=== PATIENT | male | born 1985 | race Caucasian/White ===

== ENCOUNTER 2016-06-21 08:32 | Emergency (ER) | payer MEDICAID ==
[2016-06-21 08:39] VITALS: BP 125/77; PULSE 80; TEMP 97; O2SAT 99; BMI 29.9
--- NOTE | 2016-06-21 10:15 | ED PDOC ---
HPI: General Adult Time Seen by Provider: 06/21/16 09:08 Chief Complaint (Nursing): Trauma History Per: Patient (Left rib pain since Sat after wrestling with brother. No SOB. Pain worse on breathing and movement.) Onset/Duration Of Symptoms: Days (2) Current Symptoms Are (Timing): Still Present Severity: Mild Pain Scale Rating Of: 2 Past Medical History Vital Signs: Last Vital Signs Temp 97 F L 06/21/16 08:38 Pulse 80 06/21/16 08:38 Resp BP 125/77 06/21/16 08:38 Pulse Ox 99 06/21/16 10:15 - Medical History PMH: No Chronic Diseases - Family History Family History: States: Unknown Family Hx - Home Medications Home Medications: Ambulatory Orders Medication Instructions Recorded oxyCODONE/Acetaminophen [Percocet 1 ea PO Q6 PRN #10 tab 02/13/14 5/325 mg Tab] Amoxicillin/Potassium Clav 1 each PO Q8 #30 tablet 03/29/15 [Augmentin 500-125 Tablet] Dexamethasone/Tobramycin [Tobradex 1 drop OS Q4 #1 bottle 03/29/15 0.1%-0.3% 2.5 Ml] Oxycodone HCl/Acetaminophen 1 each PO Q6 #14 tablet 03/29/15 [Percocet 5-325 mg Tablet] Pseudoephedrine [Pseudoephedrine 60 mg PO Q8 #30 tab 03/29/15 HCl] traMADol [Ultram] 50 mg PO Q8 #10 tab 06/21/16 - Allergies Allergies/Adverse Reactions: Allergies Allergy/AdvReac Type Severity Reaction Status Date / Time No Known Allergies Allergy Verified 02/13/14 14:48 Review of Systems Respiratory: Negative for: Shortness of Breath Musculoskeletal: Positive for: Other (Left rib pain) Physical Exam - Physical Exam Appears: Positive for: Non-toxic, No Acute Distress Skin: Positive for: Normal Color, Warm, DRY Cardiovascular/Chest: Positive for: Regular Rate, Rhythm. Negative for: Chest Non Tender (Tenderness left lateral ribs) Respiratory: Positive for: CNT, Normal Breath Sounds Gastrointestinal/Abdominal: Positive for: Bowel Sounds, Soft. Negative for: Tenderness - ECG O2 Sat by Pulse Oximetry: 99 Disposition - Clinical Impression Clinical Impression: Rib contusion - Patient ED Disposition Is Patient to be Admitted: No Counseled Patient/Family Regarding: Studies Performed, Diagnosis, Need For Followup, Rx Given - Disposition Referrals: [facility] [Outside] Disposition: Routine/Home Disposition Time: 12:12 Condition: FAIR Prescriptions: traMADol [Ultram] 50 mg PO Q8 #10 tab Instructions: Rib Contusion (ED) Forms: [facility] (Qatari)
--- NOTE | 2016-06-21 13:54 | RAD ---
PROCEDURE: Radiographs of the Chest and Left Ribs. HISTORY: trauma COMPARISON: None available. TECHNIQUE: Frontal radiograph of the chest and multiple oblique radiographs of the left ribs were obtained. FINDINGS: LEFT RIBS: No fracture or focal lesion visualized. LUNGS: Clear. PLEURA: No pneumothorax or pleural fluid. CARDIOVASCULAR: Normal sized heart. No pulmonary vascular congestion. OTHER FINDINGS: None. IMPRESSION: Unremarkable radiographs of the chest and left ribs. No left rib fracture.
== END 2016-06-21 12:36 | disposition home or self-care (01) ==
LOC: H.ER 08:32
DX: S20.219A Contusion of unspecified front wall of thorax, initial encounter (principal); X50.9XXA Other and unspecified overexertion or strenuous movements or postures, initial encounter; Y93.72 Activity, wrestling

== ENCOUNTER 2016-09-06 22:10 | Emergency (ER) | payer MEDICAID, OTHER ==
[2016-09-06 22:10] VITALS: BMI 29.9
[2016-09-06 22:19] VITALS: BP 132/76; PULSE 84; RESP 18; TEMP 97.6; O2SAT 99
--- NOTE | 2016-09-06 22:48 | ED PDOC ---
Lower Extremity Pain/Injury Time Seen by Provider: 09/06/16 22:26 Chief Complaint (Nursing): Lower Extremity Problem/Injury Chief Complaint (Provider): right foot History Per: Patient History/Exam Limitations: no limitations - Ankle/Foot Description Of Injury: Other (right foot ran over by a forklift machine at work earlier today. now with pain to foot mad owrse with walking. ) - Risk Factors DVT Risk Factors: Pos: None Past Medical History Reviewed: Historical Data, Nursing Documentation, Vital Signs Vital Signs: Last Vital Signs Temp 97.6 F 09/06/16 22:15 Pulse 84 09/06/16 22:15 Resp 18 09/06/16 22:15 BP 132/76 09/06/16 22:15 Pulse Ox 99 09/06/16 22:15 - Medical History PMH: No Chronic Diseases - Family History Family History: States: Unknown Family Hx - Home Medications Home Medications: Ambulatory Orders Medication Instructions Recorded oxyCODONE/Acetaminophen [Percocet 1 ea PO Q6 PRN #10 tab 02/13/14 5/325 mg Tab] Amoxicillin/Potassium Clav 1 each PO Q8 #30 tablet 03/29/15 [Augmentin 500-125 Tablet] Dexamethasone/Tobramycin [Tobradex 1 drop OS Q4 #1 bottle 03/29/15 0.1%-0.3% 2.5 Ml] Oxycodone HCl/Acetaminophen 1 each PO Q6 #14 tablet 03/29/15 [Percocet 5-325 mg Tablet] Pseudoephedrine [Pseudoephedrine 60 mg PO Q8 #30 tab 03/29/15 HCl] traMADol [Ultram] 50 mg PO Q8 #10 tab 06/21/16 Ibuprofen [Motrin] 400 mg PO Q6 #30 tab 09/06/16 - Allergies Allergies/Adverse Reactions: Allergies Allergy/AdvReac Type Severity Reaction Status Date / Time No Known Allergies Allergy Verified 02/13/14 14:48 Review of Systems ROS Statement: Except As Marked, All Systems Reviewed And Found Negative Musculoskeletal: Positive for: Foot Pain Physical Exam - Reviewed Nursing Documentation Reviewed: Yes Vital Signs Reviewed: Yes - Physical Exam Appears: Positive for: Well, Non-toxic, No Acute Distress Skin: Positive for: Normal Color, Warm, DRY Cardiovascular/Chest: Positive for: Regular Rate, Rhythm Respiratory: Positive for: CNT, Normal Breath Sounds Extremity: Negative for: Other (foot: right swelling to orsum of foot with pain and pain to plantar aspect of foot mild reddness and swelling FROM of foot. ) Neurologic/Psych: Positive for: Alert, Oriented - ECG O2 Sat by Pulse Oximetry: 99 - Radiology X-Ray: Interpreted by Me (? fx noted) Medical Decision Making Medical Decision Making: podiatry consulted Pt was splinted an given cruthes and advised to have podiatry consult next week,. Disposition - Clinical Impression Clinical Impression: Foot injury - Patient ED Disposition Is Patient to be Admitted: No Counseled Patient/Family Regarding: Studies Performed, Diagnosis, Need For Followup, Rx Given - Disposition Referrals: Podiatry Clinic [Outside] Disposition: Routine/Home Disposition Time: 23:44 Condition: GOOD Prescriptions: Ibuprofen [Motrin] 400 mg PO Q6 #30 tab Instructions: Swollen Joint (ED) Forms: [facility] ED School/Work Excuse
--- NOTE | 2016-09-06 23:49 | CP.PCM.CON ---
History of Present Illness - History of Present Illness History of Present Illness: Patient is a 31 y.o male who was seen in ED for right foot pain secondary to trauma. Patient was at work when a tugger cart rolled over his right foot at 6pm. He was wearing [id number] boots at the time of the injury. He reports 5/10 pain and describes the pain as a sharp pain that stays localized at the plantar aspect of metatarsal shaft 2, 3, and 4. He admits to being able to walk but is painful. He presents in the ED with slippers and socks and is accompanied by his girlfriend. He denies n/v/sob/cp/chills or f. PMH: none PSH: none Allergies: NKDA Medication: none Review of Systems - Constitutional Constitutional: As Per HPI - Integumentary Integumentary: As Per HPI Past Patient History - Past Social History Smoking Status: Light Smoker < 10 Cigarettes Daily - PSYCHIATRIC Hx Substance Use: Yes (MARIJUANA) - SURGICAL HISTORY Hx Surgeries: Yes (right hand) - ANESTHESIA Hx Anesthesia: Yes Meds Home Medications: Home Medication List Medication Instructions Recorded Confirmed Type Ibuprofen [Motrin] 400 mg PO Q6 #30 tab 09/06/16 Rx Allergies/Adverse Reactions: Allergies Allergy/AdvReac Type Severity Reaction Status Date / Time No Known Allergies Allergy Verified 02/13/14 14:48 Physical Exam - Constitutional Appears: Well, Non-toxic, No Acute Distress - Extremities Exam Additional comments: Vasc: DP and PT 2/4 bilaterally, MITER CUTTER <3 seconds, digital hair present bilaterally, temperature gradient WNL, no edema noted Ortho: MM is 5/5 in all four compartments, moderate pain with palpation of metatarsals 2,3, and 4 shaft plantarly. Pain at the plantar midfoot noted. no pain with ROM 1-5 MPJ right foot Neuro: gross sensation intact bilaterally Derm: no open lesions noted, no erythema or ecchymosis noted, skin color appear normal - Neurological Exam Neurological exam: Alert, Oriented x3 - Skin Skin Exam: Intact, Normal Color Results - Vital Signs Recent Vital Signs: Last Vital Signs Temp 97.6 F 09/06/16 22:15 Pulse 84 09/06/16 22:15 Resp 18 09/06/16 22:15 BP 132/76 09/06/16 22:15 Pulse Ox 99 09/06/16 22:53 Assessment & Plan - Assessment and Plan (Free Text) Assessment: 31 y.o male with right foot pain secondary to trauma with possible lisfranc injury Plan: Patient examined and evaluated at bedside. Patient chart and labs reviewed. Plan discussed in detail with attending Dr. Teresa. X-rays ordered and reviewed- no fracture noted; diastasis of 1st and 2nd metatarsal bases noted Posterior splint was applied to right leg. Patient tolerated application well. Instructed to NWB in right posterior splint with crutches for next 2 days Recommend Ibuprofen for pain Ice and elevate right leg Will f/u in podiatry clinic within 1 week to r/o lisfranc injury and access patient Thank you for the consult
--- NOTE | 2016-09-07 12:33 | RAD ---
PROCEDURE: Right Foot Radiographs. HISTORY: Foot Pain. No history of recent/ related trauma provided COMPARISON: None. FINDINGS: BONES: Normal. No fracture. JOINTS: Minor hallux valgus deformity SOFT TISSUES: Normal. OTHER FINDINGS: None. IMPRESSION: No acute findings related to/accounting for the clinical presentation. Concordant results with the preliminary interpretation rendered by the emergency department physician procedure.
== END 2016-09-06 23:22 | disposition home or self-care (01) ==
LOC: H.ER 22:10
DX: S93.334A Other dislocation of right foot, initial encounter (principal); W24.0XXA Contact with lifting devices, not elsewhere classified, initial encounter; Y93.9 Activity, unspecified

== ENCOUNTER 2017-04-24 10:42 | Emergency (ER) | payer OTHER ==
[2017-04-24 10:42] VITALS: BMI 29.9
[2017-04-24 10:58] VITALS: RESP 18; TEMP 98.2; O2SAT 100
[2017-04-24] MEDS ORDERED: Tdap Vaccine 0.5 ml Vial (10-64 yrs) IM ONE (12:08)
[2017-04-24] MEDS ORDERED: Tetanus/Diphtheria Toxoids 0.5 ml Syringe IM ONE (12:12)
--- NOTE | 2017-04-24 13:02 | ED PDOC ---
HPI: General Adult Time Seen by Provider: 04/24/17 11:22 Chief Complaint (Nursing): Medical Clearance History Per: Patient Additional Complaint(s): Pt. states he was arrested early this morning and during the arrest he injured his head. States he struck his head but is uncertain as to what he hit his head on. Reports no LOC. Currently c/o pain to the back of the head. Denies previous TBI, nausea, vomiting, neck pain, other injury, limb pain, chest pain, abdominal pain. Past Medical History Vital Signs: Last Vital Signs Temp 98.2 F 04/24/17 10:53 Pulse 98 H 04/24/17 10:53 Resp 18 04/24/17 10:53 BP 128/77 04/24/17 10:53 Pulse Ox 100 04/24/17 13:04 - Family History Family History: States: Unknown Family Hx - Home Medications Home Medications: Ambulatory Orders Medication Instructions Recorded oxyCODONE/Acetaminophen [Percocet 1 ea PO Q6 PRN #10 tab 02/13/14 5/325 mg Tab] Amoxicillin/Potassium Clav 1 each PO Q8 #30 tablet 03/29/15 [Augmentin 500-125 Tablet] Dexamethasone/Tobramycin [Tobradex 1 drop OS Q4 #1 bottle 03/29/15 0.1%-0.3% 2.5 Ml] Oxycodone HCl/Acetaminophen 1 each PO Q6 #14 tablet 03/29/15 [Percocet 5-325 mg Tablet] Pseudoephedrine [Pseudoephedrine 60 mg PO Q8 #30 tab 03/29/15 HCl] traMADol [Ultram] 50 mg PO Q8 #10 tab 06/21/16 Ibuprofen [Motrin] 400 mg PO Q6 #30 tab 09/06/16 - Allergies Allergies/Adverse Reactions: Allergies Allergy/AdvReac Type Severity Reaction Status Date / Time No Known Allergies Allergy Verified 02/13/14 14:48 Review of Systems ROS Statement: Except As Marked, All Systems Reviewed And Found Negative Neurological: Positive for: Headache Physical Exam - Physical Exam Appears: Positive for: Well, Non-toxic, No Acute Distress Head Exam: Negative for: ATRAUMATIC (superficial abrasion with swelling on occipital scalp), NORMAL INSPECTION, NORMOCEPHALIC Skin: Positive for: Normal Color, Warm, DRY Eye Exam: Positive for: Normal appearance, EOMI, PERRL. Negative for: Periorbital swelling, Periorbital tenderness ENT: Positive for: Normal ENT Inspection, TM Is/Are (no hemotympanum b/l) Neck: Positive for: Normal, Painless ROM Cardiovascular/Chest: Positive for: Regular Rate, Rhythm, Chest Non Tender Respiratory: Positive for: CNT, Normal Breath Sounds Gastrointestinal/Abdominal: Positive for: Normal Exam, Soft. Negative for: Tenderness Back: Positive for: Normal Inspection. Negative for: L CVA Tenderness, R CVA Tenderness, Vertebral Tenderness (no cervical spine tenderness) Extremity: Positive for: Normal ROM Neurologic/Psych: Positive for: Alert, Oriented. Negative for: Aphasia, Facial Droop - ECG O2 Sat by Pulse Oximetry: 100 - Progress ED Course And Treament: Tetanus prophylaxis administered. CT head w/o contrast ordered. Disposition - Clinical Impression Clinical Impression: Head injury - Patient ED Disposition Is Patient to be Admitted: No - Disposition Referrals: [facility] [Outside] Disposition: Discharged/Transfer to Law Enforcement Disposition Time: 13:32 Condition: STABLE Additional Instructions: Patient is medically and psychiatrically cleared for incarceration. Instructions: Minor Head Injury (DC) Print Language: YORUBA
--- NOTE | 2017-04-24 13:34 | CT ---
PROCEDURE: CT HEAD WITHOUT CONTRAST. HISTORY: trauma COMPARISON: None available. TECHNIQUE: Axial computed tomography images were obtained through the head/brain without intravenous contrast. . Note the examination is limited by motion artifact. Radiation dose: Total exam DLP = 878.76 mGy-cm. This CT exam was performed using one or more of the following dose reduction techniques: Automated exposure control, adjustment of the mA and/or kV according to patient size, and/or use of iterative reconstruction technique. FINDINGS: HEMORRHAGE: No intracranial hemorrhage. BRAIN: No mass effect or edema. No atrophy or chronic microvascular ischemic changes. VENTRICLES: No obstructive hydrocephalus. Incidental note is made of cavum septum pellucidum and vergae. CALVARIUM: No acute calvarial fractures. The PARANASAL SINUSES: Minimal mucosal thickening both maxillary antra left greater than right. There is also mild mucosal thickening in the ethmoid air complex extending superiorly into the frontal sinus. MASTOID AIR CELLS: Unremarkable as visualized. No inflammatory changes. OTHER FINDINGS: None. IMPRESSION: Limited motion degraded study. No acute intracranial hemorrhage. Right parasagittal and mid posterior superior parietal scalp contusion/soft tissue swelling which extends inferiorly into the occipital region
[2017-04-24 14:53] VITALS: BP 122/74; PULSE 88
== END 2017-04-24 14:27 ==
LOC: H.ER 10:42
DX: S00.03XA Contusion of scalp, initial encounter; Y35.813A Legal intervention involving manhandling, suspect injured, initial encounter; Y92.89 Other specified places as the place of occurrence of the external cause

== ENCOUNTER 2017-05-08 21:06 | Emergency (ER) | payer SELFPAY ==
[2017-05-08 21:06] VITALS: BMI 29.9
[2017-05-08 21:21] VITALS: BP 144/83; PULSE 89; RESP 18; TEMP 97.8; O2SAT 99
--- NOTE | 2017-05-08 21:36 | ED PDOC ---
Upper Extremity Pain/Injury Time Seen by Provider: 05/08/17 21:33 Chief Complaint (Nursing): Finger,Hand,&Wrist History Per: Patient History/Exam Limitations: no limitations Current Symptoms Are (Timing): Still Present Additional Complaint(s): 31 y/o male, who presents to the ED complaining of swelling and pain on right index finger since 5 days ago. Patient reports having a habit of biting his nails and developed this swelling. He notes having Tetanus shot updates a couple weeks ago when he came to the ED to get evaluated for headache. Patient denies fever, chills, nausea, or other complaints. Past Medical History Reviewed: Historical Data, Nursing Documentation, Vital Signs Vital Signs: Last Vital Signs Temp 97.8 F 05/08/17 21: Pulse 89 05/08/17 21:17 Resp 18 05/08/17 21:17 BP 144/83 05/08/17 21:17 Pulse Ox 99 05/08/17 21:17 - Family History Family History: States: Unknown Family Hx - Home Medications Home Medications: Ambulatory Orders Medication Instructions Recorded oxyCODONE/Acetaminophen [Percocet 1 ea PO Q6 PRN #10 tab 02/13/14 5/325 mg Tab] Amoxicillin/Potassium Clav 1 each PO Q8 #30 tablet 03/29/15 [Augmentin 500-125 Tablet] Dexamethasone/Tobramycin [Tobradex 1 drop OS Q4 #1 bottle 03/29/15 0.1%-0.3% 2.5 Ml] Oxycodone HCl/Acetaminophen 1 each PO Q6 #14 tablet 03/29/15 [Percocet 5-325 mg Tablet] Pseudoephedrine [Pseudoephedrine 60 mg PO Q8 #30 tab 03/29/15 HCl] traMADol [Ultram] 50 mg PO Q8 #10 tab 06/21/16 Ibuprofen [Motrin] 400 mg PO Q6 #30 tab 09/06/16 Naproxen 375 mg PO Q8 PRN #21 tablet 05/08/17 Sulfamethoxazole/Trimethoprim 1 each PO BID #14 tablet 05/08/17 [Bactrim Ds Tablet] oxyCODONE/Acetaminophen [Percocet 1 ea PO Q6 PRN #8 tab 05/08/17 5/325 mg Tab] - Allergies Allergies/Adverse Reactions: Allergies Allergy/AdvReac Type Severity Reaction Status Date / Time No Known Allergies Allergy Verified 02/13/14 14:48 Review of Systems ROS Statement: Except As Marked, All Systems Reviewed And Found Negative Constitutional: Negative for: Fever Respiratory: Negative for: Shortness of Breath Musculoskeletal: Positive for: Hand Pain (right index finger swelling and pain ) Physical Exam - Reviewed Nursing Documentation Reviewed: Yes Vital Signs Reviewed: Yes - Physical Exam Appears: Positive for: Well, Non-toxic, No Acute Distress Head Exam: Positive for: ATRAUMATIC, NORMAL INSPECTION, NORMOCEPHALIC Skin: Positive for: Normal Color, Warm, DRY Eye Exam: Positive for: EOMI, Normal appearance, PERRL Extremity: Positive for: Normal ROM, Other (fluctuance at base of right index nail.) Neurologic/Psych: Positive for: Alert, chemical engineering technologist II-XII, Oriented - ECG O2 Sat by Pulse Oximetry: 99 (room air) Pulse Ox Interpretation: Normal Medical Decision Making Medical Decision Making: Scribe Attestation: Linda Leslie MD Scribe Attestation: All medical record entries made by the Scribe were at my direction and personally dictated by me. I have reviewed the chart and agree that the record accurately reflects my personal performance of the history, physical exam, medical decision making, and the department course for this patient. I have also personally directed, reviewed, and agree with the discharge instructions and disposition. Procedures - Incision and Drainage Site: right index finger at base of nail Blade Size: 11 I & D Procedure: betadine prep, gauze wick placed Progress: Patient gave verbal consent prior to procedure. 11 blade was used to make incision into base of index finger right hand. Small sterile packing placed. Patient will be d/c and was advised to follow up in 2-3 days for removal of packing. Disposition - Clinical Impression Clinical Impression: Paronychia of left index finger - Patient ED Disposition Is Patient to be Admitted: No - Disposition Disposition: Routine/Home Disposition Time: 21:58 Condition: FAIR Additional Instructions: RETURN TO ED IN 2 DAYS FOR REMOVAL OF PACKING Prescriptions: Naproxen 375 mg PO Q8 PRN #21 tablet PRN Reason: Pain, Moderate (4-7) oxyCODONE/Acetaminophen [Percocet 5/325 mg Tab] 1 ea PO Q6 PRN #8 tab PRN Reason: Pain, Severe (8-10) Sulfamethoxazole/Trimethoprim [Bactrim Ds Tablet] 1 each PO BID #14 tablet Instructions: Paronychia Forms: [facility] (Jamaican), [facility] ED School/Work Excuse
[2017-05-08] MEDS: Oxycodone/Acetaminophen 5/325 mg Tab PO STA (21:50)
[2017-05-08] MEDS ORDERED: Oxycodone/Acetaminophen 5/325 mg Tab ONE (21:53)
== END 2017-05-08 22:18 | disposition home or self-care (01) ==
LOC: H.ER 21:06
DX: L03.012 Cellulitis of left finger (principal)

== ENCOUNTER 2017-05-12 19:49 | Emergency (ER) | payer SELFPAY ==
[2017-05-12 19:49] VITALS: BMI 29.9
[2017-05-12 20:25] VITALS: BP 135/79; PULSE 86; RESP 14; TEMP 98.6; O2SAT 97
--- NOTE | 2017-05-12 20:51 | ED PDOC ---
HPI: General Adult Time Seen by Provider: 05/12/17 20:27 Chief Complaint (Nursing): Finger,Hand,&Wrist Chief Complaint (Provider): Wound check: right index finger History Per: Patient History/Exam Limitations: no limitations Onset/Duration Of Symptoms: Days (x5) Current Symptoms Are (Timing): Still Present Additional Complaint(s): 31-year-old male presents to the Emergency Department for wound check of the right index finger. Patient was seen here on Tuesday and had I&D of paronychia, and reports he has been taking his antibiotics and naprosyn as prescribed. He changes the dressing yesterday. Patient reports he is still having some pain but overall the pain has improved. No fever or chills. PMD: none Past Medical History Reviewed: Historical Data, Nursing Documentation, Vital Signs Vital Signs: Last Vital Signs Temp 98.6 F 05/12/17 20:22 Pulse 86 05/12/17 20:22 Resp 14 05/12/17 20:22 BP 135/79 05/12/17 20:22 Pulse Ox 97 05/12/17 20:54 - Medical History PMH: No Chronic Diseases - Surgical History Surgical History: No Surg Hx - Family History Family History: States: No Known Family Hx - Living Arrangements Living Arrangements: With Family - Social History Current smoker - smoking cessation education provided: No Alcohol: Social Drugs: Denies - Home Medications Home Medications: Ambulatory Orders Medication Instructions Recorded oxyCODONE/Acetaminophen [Percocet 1 ea PO Q6 PRN #10 tab 02/13/14 5/325 mg Tab] Amoxicillin/Potassium Clav 1 each PO Q8 #30 tablet 03/29/15 [Augmentin 500-125 Tablet] Dexamethasone/Tobramycin [Tobradex 1 drop OS Q4 #1 bottle 03/29/15 0.1%-0.3% 2.5 Ml] Oxycodone HCl/Acetaminophen 1 each PO Q6 #14 tablet 03/29/15 [Percocet 5-325 mg Tablet] Pseudoephedrine [Pseudoephedrine 60 mg PO Q8 #30 tab 03/29/15 HCl] traMADol [Ultram] 50 mg PO Q8 #10 tab 06/21/16 Ibuprofen [Motrin] 400 mg PO Q6 #30 tab 09/06/16 Naproxen 375 mg PO Q8 PRN #21 tablet 05/08/17 Sulfamethoxazole/Trimethoprim 1 each PO BID #14 tablet 05/08/17 [Bactrim Ds Tablet] oxyCODONE/Acetaminophen [Percocet 1 ea PO Q6 PRN #8 tab 05/08/17 5/325 mg Tab] - Allergies Allergies/Adverse Reactions: Allergies Allergy/AdvReac Type Severity Reaction Status Date / Time No Known Allergies Allergy Verified 02/13/14 14:48 Review of Systems ROS Statement: Except As Marked, All Systems Reviewed And Found Negative Constitutional: Negative for: Fever Musculoskeletal: Positive for: Other (paronychia right index finger) Physical Exam - Reviewed Nursing Documentation Reviewed: Yes Vital Signs Reviewed: Yes - Physical Exam Appears: Positive for: Non-toxic, No Acute Distress Head Exam: Positive for: ATRAUMATIC, NORMAL INSPECTION, NORMOCEPHALIC Skin: Positive for: Normal Color. Negative for: Rash Eye Exam: Positive for: Normal appearance Extremity: Positive for: Other (well healed paronychia noted to right index finger with gauze wick in place, no erythema or swelling noted, normal cap refill) Neurologic/Psych: Positive for: Alert, Oriented - ECG O2 Sat by Pulse Oximetry: 97 (RA) Pulse Ox Interpretation: Normal Medical Decision Making Medical Decision Making: Impression: Visit for wound check Time: 20:48 Procedure Note: Gauze wick from paronychia was removed without difficulty. Wound cleansed with sterile saline in the ED. Wound care instructions provided to patient. Advised to continue with antibiotics and pain meds as directed. Patient was instructed to follow up with hand specialist if pain persists. There is agreement to discharge plan. Scribe Attestation: Documented by Mariangel Maria, acting as a scribe for Macey Feng PA-C Provider Scribe Attestation: All medical record entries made by the Scribe were at my direction and personally dictated by me. I have reviewed the chart and agree that the record accurately reflects my personal performance of the history, physical exam, medical decision making, and the department course for this patient. I have also personally directed, reviewed, and agree with the discharge instructions and disposition. Disposition - Clinical Impression Clinical Impression: Paronychia - Patient ED Disposition Is Patient to be Admitted: No Counseled Patient/Family Regarding: Diagnosis, Need For Followup - Disposition Referrals: Alyson Julio MD [Staff Provider] - Disposition: Routine/Home Disposition Time: 21:02 Condition: STABLE Additional Instructions: Keep area clean and dry. Apply warm soaks with Epsom salts. Continue with antibiotics to completion. Continue with pain medication. Follow up with hand specialist for any persistent symptoms. Instructions: Paronychia Forms: [employer] ([place])
== END 2017-05-12 21:13 | disposition home or self-care (01) ==
LOC: H.ER 19:49
DX: Z48.00 Encounter for change or removal of nonsurgical wound dressing (principal)

== ENCOUNTER 2018-01-16 22:39 | Emergency (ER) | payer SELFPAY ==
[2018-01-16 22:40] VITALS: BMI 29.9
--- NOTE | 2018-01-16 23:38 | ED PDOC ---
HPI: SOB/CHF/COPD Time Seen by Provider: 01/16/18 23:14 Chief Complaint (Nursing): Shortness Of Breath Chief Complaint (Provider): chest pain, shortness of breath History Per: Patient History/Exam Limitations: no limitations Onset/Duration Of Symptoms: Days Current Symptoms Are (Timing): Still Present Initiating Event: Upper Respiratory Illness Quality: Tightness Additional Complaint(s): 32 yo Male current cigar smoker with no PMH who presents with chest pain and SOB. Pt states that he had a dry cough 1 week ago and then developed chest pain and SOB about 5 days ago that occurred while at rest, worse with exertion. The cough has since gone away but continues to have SOB as unable to take deep breaths. Denies nasal congestion, fever, chills, night sweats, palpitations, radiation of pain, N/V. Further denies recent long distance travel, recent surgery, trauma, Ca history. Past Medical History Vital Signs: Last Vital Signs Temp 98.6 F 01/16/18 22:42 Pulse 78 01/16/18 22:42 Resp 16 01/16/18 23:21 BP 118/84 01/16/18 22:42 Pulse Ox 99 01/16/18 23:21 - Family History Family History: States: Unknown Family Hx - Home Medications Home Medications: Ambulatory Orders Medication Instructions Recorded oxyCODONE/Acetaminophen [Percocet 1 ea PO Q6 PRN #10 tab 02/13/14 5/325 mg Tab] Amoxicillin/Potassium Clav 1 each PO Q8 #30 tablet 03/29/15 [Augmentin 500-125 Tablet] Dexamethasone/Tobramycin [Tobradex 1 drop OS Q4 #1 bottle 03/29/15 0.1%-0.3% 2.5 Ml] Oxycodone HCl/Acetaminophen 1 each PO Q6 #14 tablet 03/29/15 [Percocet 5-325 mg Tablet] Pseudoephedrine [Pseudoephedrine 60 mg PO Q8 #30 tab 03/29/15 HCl] traMADol [Ultram] 50 mg PO Q8 #10 tab 06/21/16 Ibuprofen [Motrin] 400 mg PO Q6 #30 tab 09/06/16 Naproxen 375 mg PO Q8 PRN #21 tablet 05/08/17 Sulfamethoxazole/Trimethoprim 1 each PO BID #14 tablet 05/08/17 [Bactrim Ds Tablet] oxyCODONE/Acetaminophen [Percocet 1 ea PO Q6 PRN #8 tab 05/08/17 5/325 mg Tab] Ibuprofen [Motrin Tab] 600 mg PO Q6H PRN 5 Days tab 01/17/18 - Allergies Allergies/Adverse Reactions: Allergies Allergy/AdvReac Type Severity Reaction Status Date / Time No Known Allergies Allergy Verified 02/13/14 14:48 Wells Criteria for PE - Wells Criteria for Pulmonary Embolism Clinical Signs and Symptoms of DVT: No P.E is #1 Diagnosis, or Equally Likely: Yes Heart Rate >100: No Immobilization at least 3 days;Surgery previous 4 weeks: No Previous, objectively diagnosed PE or DVT: No Hemoptysis: No Malignancy w/treatment within 6 months, or palliative: No Total Score: 1 Physical Exam - Reviewed Nursing Documentation Reviewed: Yes Vital Signs Reviewed: Yes - Physical Exam Appears: Positive for: Non-toxic Head Exam: Positive for: ATRAUMATIC Skin: Positive for: Normal Color Eye Exam: Positive for: Normal appearance, PERRL ENT: Positive for: Normal ENT Inspection Neck: Positive for: Normal Cardiovascular/Chest: Positive for: Regular Rate, Rhythm Respiratory: Positive for: Normal Breath Sounds Gastrointestinal/Abdominal: Positive for: Normal Exam Lymphatic: Positive for: Normal Exam Neurologic/Psych: Positive for: Alert, Oriented - Laboratory Results Result Diagrams: 01/16/18 23:55 01/16/18 23:55 - ECG O2 Sat by Pulse Oximetry: 99 Medical Decision Making Medical Decision Making: Chest PA and lateral CBC, CMP EKG D-dimer CXR: my read: no acute pulmonary disease Disposition - Clinical Impression Clinical Impression: Pleuritic chest pain - Patient ED Disposition Is Patient to be Admitted: No Counseled Patient/Family Regarding: Studies Performed, Diagnosis, Need For Followup, Rx Given - Disposition Referrals: [facility] [place] [Outside] Disposition: Routine/Home Disposition Time: :27 Condition: STABLE Additional Instructions: Return to ER if your Shortness of breath worsens despite Ibuprofen for chest pain. Prescriptions: Ibuprofen [Motrin Tab] 600 mg PO Q6H PRN 5 Days tab PRN Reason: Pain, Moderate (4-7) Instructions: Pleuritic Chest Pain (DC) Forms: [employer] ([place]) Print Language: SENEGALESE - POA Present On Arrival: None
[2018-01-17 00:13] LABS: BASO # 0.1 K/uL (0.0-0.2); EOS # 0.3 K/uL (0.0-0.7); EOS % 2.7 % (0.0-4.0); HEMOGLOBIN 14.3 g/dL (12.0-18.0); LYMPH # 2.9 K/uL (1.0-4.3); LYMPH % 27.5 % (20.0-40.0); MEAN CELL VOLUME 83.4 fl (80.0-94.0); MEAN CORPUSCULAR HEMOGLOBIN 28.3 pg (27.0-31.0); MEAN CORPUSCULAR HGB CONC 33.9 g/dL (33.0-37.0); MEAN PLATELET VOLUME 7.8 fl (7.2-11.7); MONO # 0.7 K/uL (0.0-0.8); MONO % 6.2 % (0.0-10.0); NEUT # 6.7 K/uL (1.8-7.0); NEUT % 62.6 % (50.0-75.0); NRBC % 0.1 % (0.0-0.0); RBC 5.07 Mil/uL (4.40-5.90); RED CELL DISTRIBUTION WIDTH 13.5 % (11.5-14.5); WHITE BLOOD COUNT 10.6 K/uL (4.8-10.8)
[2018-01-17 00:18] LABS: ALB/GLOB RATIO 1.3 (1.0-2.1); ALBUMIN 4.1 g/dL (3.5-5.0); ALT/SGPT 32 U/L (21-72); AST/SGOT 24 U/L (17-59); BLOOD UREA NITROGEN 19 mg/dl (9-20); CALCIUM 8.9 mg/dL (8.4-10.2); GFR NON-AFRICAN AMERICAN > 60
[2018-01-17 01:27] VITALS: O2SAT 99
[2018-01-17 01:38] VITALS: BP 116/80; PULSE 81; RESP 18; TEMP 98.1
--- NOTE | 2018-01-17 11:28 | RAD ---
Date of service: 01/16/2018 HISTORY: shortness of breath, cough COMPARISON: 06/21/2016 TECHNIQUE: Chest PA and lateral FINDINGS: LUNGS: No active pulmonary disease. PLEURA: No significant pleural effusion identified. No pneumothorax apparent. CARDIOVASCULAR: No aortic atherosclerotic calcification present. Normal cardiac size. No pulmonary vascular congestion. OSSEOUS STRUCTURES: No significant abnormalities. VISUALIZED UPPER ABDOMEN: Normal. OTHER FINDINGS: None. IMPRESSION: No active disease.
--- NOTE | 2018-01-17 15:13 | CARD ---
APPROVED REPORT Date of service: 01/16/2018 EKG Measurement Heart [id number] <Conclusion> Normal sinus rhythm Normal ECG
== END 2018-01-17 01:38 | disposition home or self-care (01) ==
LOC: H.ER 22:39
DX: J44.9 Chronic obstructive pulmonary disease, unspecified (principal)